=== PATIENT | male | born 1990 | race Caucasian/White ===

== ENCOUNTER 2018-10-15 14:44 | Emergency (ER) | payer BC ==
[~2018-10-15] VITALS: Ht 188 cm; Wt 86.4 kg
[2018-10-15 14:50] VITALS: BP 140/87
== END 2018-10-15 15:57 | disposition home or self-care (01) ==
LOC: ER 14:45
DX: R22.32 Localized swelling, mass and lump, left upper limb (principal)
CPT/HCPCS: 73120; 99283